=== PATIENT | female | born 1970 | race Caucasian/White ===

== ENCOUNTER 2016-09-26 18:47 | Emergency (ER) | payer BC ==
[2016-09-26 18:51] VITALS: BP 139/76
[2016-09-26] MEDS ORDERED: Lidocaine 1% 20 ML MDV ONE (19:06)
[2016-09-26] MEDS ORDERED: Bacitracin/Neomycin/Polymyxin B Oint 0.9 GM U/D Packet TOP ONE (19:15)
[2016-09-26] MEDS ORDERED: Lidocaine 1% 20 ML MDV INJECT ONE (19:15)
--- NOTE | 2016-09-26 19:32 | EDM.PDOC ---
ED HPI GENERAL MEDICAL PROBLEM - General Chief Complaint: Laceration Stated Complaint: LACERATION Time Seen by Provider: 09/26/16 19:10 Source of Information: Reports: Patient History Limitations: Reports: No Limitations - History of Present Illness INITIAL COMMENTS - FREE TEXT/NARRATIVE: Patient presents with a laceration to her left index finger. Was assisting with applying barn wood to a focus wall and was holding the board while her friend cut and she inadvertently was cut by the saw. Did apply pressure and bleeding is controlled. Patient does have good range of motion with her digit. No other concerns elsewhere. 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 [No Known Home Meds] 09/26/16 [History] Past Medical History - Past Health History Medical/Surgical History: Denies Medical/Surgical History - Past Surgical History Female Surgical History: Reports: Hysterectomy Social & Family History - Family History Family Medical History: Noncontributory - Tobacco Use Smoking Status *Q: Current Every Day Smoker Years of Tobacco use: 30 Packs/Tins Daily: 0.5 - Caffeine Use Caffeine Use: Reports: None - Recreational Drug Use Recreational Drug Use: No ED ROS GENERAL - Review of Systems Review Of Systems: ROS reveals no pertinent complaints other than HPI. ED EXAM, SKIN/RASH Exam: See Below Exam Limited By: No Limitations General Appearance: Alert, WD/WN, No Apparent Distress Extremities: Normal Range of Motion, Normal Capillary Refill Neurological: Alert, Oriented Psychiatric: Normal Affect, Normal Mood Location, Skin: Upper Extremity, Left Characteristics: Linear ED SKIN PROCEDURES - Laceration/Wound Repair Left Finger Lac/Wound length In cm: 2 Appearance: Superficial, Linear, Mildly Contaminated Distal NVT: Neuro & Vascular Intact Anesthetic Type: Local Local Anesthesia - Lidocaine (Xylocaine): 1% Plain Local Anesthetic Volume: 2cc Skin Prep: Other (saf-clens) Exploration/Debridement/Repair: Wound Explored, Explored to Base Closed with: Sutures Suture Size: other (5-0) Suture Type: Nylon, Interrupted, Simple Sterile Dressing Applied: Nurse Tetanus Status Addressed: Yes Complications: No Course - Vital Signs Last Recorded V/S: Last Vital Signs Temp 96.6 F 09/26/16 18:47 Pulse 100 09/26/16 18:47 Resp 20 09/26/16 18:47 BP 139/76 09/26/16 18:47 Pulse Ox 98 09/26/16 18:47 - Orders/Labs/Meds Meds: Medications Discontinued Medications Generic Name Dose Route Start Last Admin Trade Name Jovanna PRN Reason Stop Dose Admin Lidocaine HCl Confirm 09/26/16 19:06 09/26/16 19:18 Xylocaine 1% Administered 09/26/16 19:07 Not Given Dose 20 ml .ROUTE .STK-MED ONE Lidocaine HCl 20 ml 09/26/16 19:15 09/26/16 19:17 Xylocaine 1% INJECT 09/26/16 19:16 20 ml ONETIME ONE Administration Neomycin/Polymyxin/Bacitracin 1 each 09/26/16 19:15 Triple Antibiotic Oint TOP 09/26/16 19:16 ONETIME ONE Departure - Departure Time of Disposition: 19:31 Disposition: Home, Self-Care 01 Condition: Good Clinical Impression: Broken skin Laceration of finger Qualifiers: Encounter type: initial encounter Finger: index finger Damage to nail status: without damage Foreign body presence: without foreign body Laterality: left Qualified Code(s): S61.211A - Laceration without foreign body of left index finger without damage to nail, initial encounter - Discharge Information Referrals: PCP,None [Primary Care Provider] - Forms: ED Department Discharge Additional Instructions: 1. Keep wound clean and dry, covered for 24 hours 2. Protect from exposure 3. Wound care instructions 4. Sutures out in 10 days 5. Follow up if any concerns.
== END 2016-09-26 19:50 | disposition home or self-care (01) ==
LOC: CC.ED 18:47
DX: S61.211A Laceration without foreign body of left index finger without damage to nail, initial encounter (principal); F17.210 Nicotine dependence, cigarettes, uncomplicated; Z90.710 Acquired absence of both cervix and uterus; Z88.2 Allergy status to sulfonamides; W27.8XXA Contact with other nonpowered hand tool, initial encounter
CPT/HCPCS: 12001; 99282